=== PATIENT | male | born 1955 | race Caucasian/White ===

== ENCOUNTER → 2018-05-29 | Outpatient (CLI) | payer OTHER ==
[2018-05-29 08:52] LABS: ANION GAP 14 (8-16); BLOOD UREA NITROGEN 22 mg/dl (7-20); CALCIUM 9.7 mg/dl (8.4-10.2); CARBON DIOXIDE 25 mmol/L (21-31); CHLORIDE 106 mmol/L (97-110); CREATININE 0.82 mg/dl (0.61-1.24); GLUCOSE 134 mg/dl (70-220); POTASSIUM 4.1 mmol/L (3.5-5.1); SODIUM 141 mmol/L (135-144)
== END | disposition home or self-care (01) ==
LOC: LAB 07:58
DX: R94.39 Abnormal result of other cardiovascular function study (principal)
CPT/HCPCS: 80048

== ENCOUNTER → 2018-06-03 | Outpatient (CLI) | payer OTHER ==
[2018-06-03] MEDS: NITROGLYCERIN AEROSOL (4.9 GM) (09:39)
[2018-06-03] MEDS: SOD CHLORIDE 0.9% 100 ML (09:53)
[2018-06-03] MEDS: IOHEXOL 100 ML (09:53)
== END | disposition home or self-care (01) ==
LOC: C/S 07:43
DX: R94.39 Abnormal result of other cardiovascular function study (principal)
CPT/HCPCS: 75574